=== PATIENT | female | born 1990 | race Caucasian/White ===

== ENCOUNTER 2019-06-14 11:12 | Emergency (ER) | payer OTHER ==
--- NOTE | 2019-06-14 11:53 | EDM.PDOC ---
ED HPI GENERAL MEDICAL PROBLEM - General Chief Complaint: Fever Stated Complaint: SOB/FEVER Time Seen by Provider: 06/14/19 11:21 Source of Information: Reports: Patient, RN Notes Reviewed History Limitations: Reports: No Limitations - History of Present Illness INITIAL COMMENTS - FREE TEXT/NARRATIVE: Patient is a 29-year-old female who presents to the ED for evaluation of a fever , sore throat, dry cough, and chest heaviness. Patient notes that she felt off yesterday, and had a seizure. She states she does have a history of seizure activity, and states that she usually gets these, but has been told they are stress-induced. Patient does not think she has been in abundant amount of stress. Nonetheless she states that she woke up this morning and her fever was 102 F. She did take some Tylenol for this. Patient complains of the feeling of an elephant sitting on her chest, she has had a dry cough, sore throat. Patient temperature at time of triage is 99.1 F. O2 sats are 97% on room air. Patient is not tachycardic, heart rate is 71 bpm, she is not dyspneic respiratory rate is 16. Patient does not appear to be in any sort of respiratory distress. Patient states she has been staying home, but denies any known exposure to COVID-19, or other sick individuals. Patient states that she has not left home except to go to the grocery store, and states that she could have had community exposure. She denies any cardiac history or lung history. Patient states that she was a cigarette smoker, but quit 4 days ago, she states that she recreationally uses marijuana from time to time. - Related Data Allergies Allergy/AdvReac Type Severity Reaction Status Date / Time NSAIDS (Non-Steroidal Allergy Stomach Verified 06/14/19 11:23 Anti-Inflamma Upset Home Meds: Home Meds . [No Known Home Meds] 01/15/19 [History] Past Medical History Neurological History: Reports: Seizure - Past Surgical History HEENT Surgical History: Reports: Myringotomy w Tube(s) (as a child) Female Surgical History: Reports: Section (x3) Social & Family History - Tobacco Use Smoking Status *Q: Former Smoker Years of Tobacco use: 11 Packs/Tins Daily: 1 Used Tobacco, but Quit: Yes Month/Year Tobacco Last Used: states that she quit 06/10/2019 Smoking Cessation Information Provided To Patient: Patient Refused - Recreational Drug Use Recreational Drug Use: Yes Recreational Drug Type: Reports: Marijuana/Hashish Recreational Drug Use Frequency: Rarely ED ROS GENERAL - Review of Systems Review Of Systems: Comprehensive ROS is negative, except as noted in HPI. ED EXAM, GENERAL - Physical Exam Exam: See Below Exam Limited By: No Limitations General Appearance: Alert, WD/WN, No Apparent Distress Eye Exam: Bilateral Eye: EOMI, Normal Inspection, PERRL Ears: Normal External Exam, Normal Canal, Hearing Grossly Normal, Normal TMs Nose: Normal Inspection, Normal Mucosa, No Blood Throat/Mouth: Normal Inspection, Normal Lips, Normal Teeth, Normal Gums, Normal Oropharynx, Normal Voice, No Airway Compromise Head: Atraumatic, Normocephalic Neck: Normal Inspection, Supple, Non-Tender, Full Range of Motion Respiratory/Chest: No Respiratory Distress, Lungs Clear, Normal Breath Sounds, No Accessory Muscle Use, Chest Non-Tender Cardiovascular: Normal Peripheral Pulses, Regular Rate, Rhythm, No Murmur Peripheral Pulses: 3+: Radial (L), Radial (R) GI/Abdominal: Normal Bowel Sounds, Soft, Non-Tender, No Distention, No Mass Extremities: Normal Inspection, Normal Capillary Refill Neurological: Alert, Oriented, Normal Cognition, No Motor/Sensory Deficits Psychiatric: Normal Affect, Normal Mood Skin Exam: Warm, Dry, Intact, Normal Color, No Rash Course - Vital Signs Last Recorded V/S: Last Vital Signs Temp 99.1 F 06/14/19 11:21 Pulse 71 06/14/19 11:21 Resp 16 06/14/19 11:21 BP 124/88 06/14/19 11:21 Pulse Ox 97 06/14/19 11:21 - Orders/Labs/Meds Orders: Active Orders 24 hr Category Date Time Status Isolation [COMM] Routine Oth 06/14/19 11:42 Ordered Labs: Laboratory Tests 06/14/19 06/14/19 06/14/19 Range/Units 12:30 12:30 12:30 WBC 6.71 (3.98-10.04) K/mm3 RBC 4.87 (3.98-5.22) M/mm3 Hgb 14.4 (11.2-15.7) gm/dl Hct 42.8 (34.1-44.9) % MCV 87.9 (79.4-94.8) fl MCH 29.6 (25.6-32.2) pg MCHC 33.6 (32.2-35.5) g/dl RDW Std Deviation 41.1 (36.4-46.3) fL Plt Count 284 (182-369) K/mm3 MPV 11.2 (9.4-12.3) fl Neutrophils % (Manual) 59 (40-60) % Band Neutrophils % 0 (0-10) % Lymphocytes % (Manual) 33 (20-40) % Atypical Lymphs % 0 % Monocytes % (Manual) 6 (2-10) % Eosinophils % (Manual) 2 (0.7-5.8) % Basophils % (Manual) 0 L (0.1-1.2) Platelet Estimate Adequate RBC Morph Comment Normal PT 11.1 (9.7-12.0) SECONDS INR 1.02 APTT 31 (22-31) SECONDS Sodium (136-145) mEq/L Potassium (3.5-5.1) mEq/L Chloride (98-107) mEq/L Carbon Dioxide (21-32) mEq/L Anion Gap (5-15) BUN (7-18) mg/dL Creatinine (0.55-1.02) mg/dL Est Cr Clr Drug Dosing mL/min Estimated GFR (MDRD) (>60) mL/min BUN/Creatinine Ratio (14-18) Glucose (74-106) mg/dL Calcium (8.5-10.1) mg/dL Magnesium (1.8-2.4) mg/dl Ferritin (8-252) ng/ml Total Bilirubin (0.2-1.0) mg/dL AST (15-37) U/L ALT (14-59) U/L Alkaline Phosphatase (46-116) U/L Lactate Dehydrogenase (81-234) U/L Creatine Kinase (26-192) U/L C-Reactive Protein 0.5 (<1.0) mg/dL NT-Pro-B Natriuret Pep (0-125) pg/mL Total Protein (6.4-8.2) g/dl Albumin (3.4-5.0) g/dl Globulin gm/dL Albumin/Globulin Ratio (1-2) 06/14/19 06/14/19 06/14/19 Range/Units 12:30 12:30 12:30 WBC (3.98-10.04) K/mm3 RBC (3.98-5.22) M/mm3 Hgb (11.2-15.7) gm/dl Hct (34.1-44.9) % MCV (79.4-94.8) fl MCH (25.6-32.2) pg MCHC (32.2-35.5) g/dl RDW Std Deviation (36.4-46.3) fL Plt Count (182-369) K/mm3 MPV (9.4-12.3) fl Neutrophils % (Manual) (40-60) % Band Neutrophils % (0-10) % Lymphocytes % (Manual) (20-40) % Atypical Lymphs % % Monocytes % (Manual) (2-10) % Eosinophils % (Manual) (0.7-5.8) % Basophils % (Manual) (0.1-1.2) Platelet Estimate RBC Morph Comment PT (9.7-12.0) SECONDS INR APTT (22-31) SECONDS Sodium 141 (136-145) mEq/L Potassium 3.9 (3.5-5.1) mEq/L Chloride 107 (98-107) mEq/L Carbon Dioxide 25 (21-32) mEq/L Anion Gap 12.9 (5-15) BUN 9 (7-18) mg/dL Creatinine 0.8 (0.55-1.02) mg/dL Est Cr Clr Drug Dosing 87.38 mL/min Estimated GFR (MDRD) > 60 (>60) mL/min BUN/Creatinine Ratio 11.3 L (14-18) Glucose 98 (74-106) mg/dL Calcium 9.1 (8.5-10.1) mg/dL Magnesium 1.8 (1.8-2.4) mg/dl Ferritin 83 (8-252) ng/ml Total Bilirubin 0.4 (0.2-1.0) mg/dL AST 10 L (15-37) U/L ALT 18 (14-59) U/L Alkaline Phosphatase 110 (46-116) U/L Lactate Dehydrogenase 123 (81-234) U/L Creatine Kinase 52 (26-192) U/L C-Reactive Protein (<1.0) mg/dL NT-Pro-B Natriuret Pep 30 (0-125) pg/mL Total Protein 7.4 (6.4-8.2) g/dl Albumin 3.7 (3.4-5.0) g/dl Globulin 3.7 gm/dL Albumin/Globulin Ratio 1.0 (1-2) - Re-Assessments/Exams Free Text/Narrative Re-Assessment/Exam: 06/14/19 11:51 Patient presents to the ED for her respiratory symptoms. She will be screened for COVID-19, and get some other labs and chest x-ray for evaluation today. 06/14/19 13:23 The patient's labs have come back, and demonstrate fairly normal values. There is nothing that is emergently worrisome at today's visit. Influenza screen was negative. Patient's throat exam did not demonstrate any signs of a strep infection 1 was not collected at today's visit. COVID swab will be collected at time of discharge, patient was made aware of results. Departure - Departure Time of Disposition: 13:25 Disposition: Home, Self-Care 01 Condition: Good Clinical Impression: Cough with fever Dyspnea Qualifiers: Dyspnea type: unspecified Qualified Code(s): R06.00 - Dyspnea, unspecified - Discharge Information *PRESCRIPTION DRUG MONITORING PROGRAM REVIEWED*: No *COPY OF PRESCRIPTION DRUG MONITORING REPORT IN PATIENT HERNANDEZ: No Instructions: Shortness of Breath, Adult, [id number], Fever, Adult, Easy-to- Read Referrals: PCP,None [Primary Care Provider] - Forms: ED Department Discharge Additional Instructions: You were seen in the ER today for ongoing and/or worsening respiratory symptoms. Your chest x-ray showed no signs of pneumonia at this time. Your oxygen levels were great at 97-98% on room air. At this time we did test you for coronavirus. Regarding testing for COVID-19, testing supplies are very limited, and the tests must be rationed in a way that only the patients that are HIGHLY suspected to have the virus are the ones being tested at this time. Swabs are sent from this facility on a daily basis, at 2:30 PM, you should expect up to 3-5 business days for positive or negative results. However you may receive results earlier than this. We are doing our best to call as soon as we get results from the [place] dept. of Health. It is recommended at this time that you go home and self quarantine and try to limit exposure to other as much as possible. Please try to increase your oral fluid intake, and eat multiple small meals throughout the day, to keep yourself healthy. You may take 500 mg Tylenol every hours 6 hours for pain/fever relief. Do not exceed 4000 mg Tylenol in a 24-hour time span. However, running a fever is your body's natural response to illness, and it allows the body to develop antibodies to disease, we are recommending trying to limit the use of Tylenol as much as possible to allow your body's natural immune response. Recommend that you obtain a simple pulse oximeter, available at most retailers like [employer] or other pharmacies, and monitor your O2 sats. In order to do as such, you will need to put the probe on your finger, and then sit in a restful position, without moving your hand to make sure that it is reading properly. Sepsis Event Note - Evaluation Sepsis Screening Result: No Definite Risk - Focused Exam Vital Signs: Vital Signs Temp Pulse Resp BP Pulse Ox 06/14/19 11:21 99.1 F 71 16 124/88 97 Date Exam was Performed: 06/14/19 Time Exam was Performed: 13:23 - My Orders Last 24 Hours: My Active Orders 06/14/19 11:42 Isolation [COMM] Routine - Assessment/Plan Last 24 Hours: My Active Orders 06/14/19 11:42 Isolation [COMM] Routine
--- NOTE | 2019-06-14 12:16 | CR ---
Chest: Portable view of the chest was obtained. Comparison: No prior chest x-ray. Heart size and mediastinum are normal. Lungs are clear with no acute parenchymal change. Bony structures are grossly intact. Impression: 1. Nothing acute is identified on 2 view chest x-ray. Diagnostic code #1 Study was dictated in MDT
== END 2019-06-14 13:45 | disposition home or self-care (01) ==
LOC: JD.ED 11:12
DX: R06.00 Dyspnea, unspecified (principal); R05 Cough; R50.9 Fever, unspecified; Z88.8 Allergy status to other drugs, medicaments and biological substances; Z87.891 Personal history of nicotine dependence
CPT/HCPCS: 36415; 71045; 71045-26; 80053; 82550; 82728; 83615; 83735; 83880; 85007; 85027; 85610; 85730; 86140; 87804; 99283; 99283-25; U0002

== ENCOUNTER 2019-12-21 17:00 | Emergency (ER) | payer MEDICARE, OTHER ==
[2019-12-21] MEDS ORDERED: Sodium Chloride 0.9% 10 ML Syringe FLUSH PRN (17:06)
[2019-12-21] MEDS ORDERED: LORazepam 2 MG/ML SDV IVPUSH ONE (17:22)
--- NOTE | 2019-12-21 18:23 | EDM.PDOC ---
ED HPI GENERAL MEDICAL PROBLEM - General Chief Complaint: Neurological Problem Stated Complaint: [facility] Time Seen by Provider: 12/21/19 17:06 Source of Information: Reports: Patient, EMS History Limitations: Reports: No Limitations - History of Present Illness INITIAL COMMENTS - FREE TEXT/NARRATIVE: The patient presents by [facility] for a seizure. The patient was at home and a neighbor heard a thump and humphrey to investigate and found the patient on the floor seizing. She had a generalized tonic clonic seizure that lasted a few seconds. She had another one when EMS arrived. She was post ictal for awhile. She feels better and she is alert and orientated. She has a history of seizures and had one a year ago. She is not on any seizure medications because the seizures are few and far between. She says when they do happen she is usually stressed. She is in the process of moving but does not feel stressed. She does have a slight headache. She has no neck pain. She has right shoulder pain. She thinks she hit it when she fell. She has no numbness or weakness. She has no fever, chills, cough, congestion, runny nose, chest pain or shortness of breath. Onset: Sudden Duration: Minutes: Location: Reports: Head, Upper Extremity, Right (shoulder) Quality: Reports: Sharp Severity: Moderate Improves with: Reports: Immobilization Worsens with: Reports: Movement Context: Reports: Trauma (Fall with a seizure) Associated Symptoms: Reports: No Other Symptoms Right Shoulder Pain Score (Numeric/FACES): 6 body Pain Score (Numeric/FACES): 4 - Related Data Allergies Allergy/AdvReac Type Severity Reaction Status Date / Time lamotrigine [From Lamictal] Allergy Severe Hives Verified 12/21/19 17:19 latex Allergy Severe Hives Verified 12/21/19 17:19 NSAIDS (Non-Steroidal Allergy Stomach Verified 06/14/19 11:23 Anti-Inflamma Upset Home Meds: Home Meds levETIRAcetam [Keppra] 500 mg PO BID #60 tab 12/21/19 [Rx] Past Medical History - Past Health History Medical/Surgical History: Denies Medical/Surgical History Neurological History: Reports: Seizure - Past Surgical History HEENT Surgical History: Reports: Myringotomy w Tube(s) Female Surgical History: Reports: Section Social & Family History - Tobacco Use Tobacco Use Status *Q: Current Every Day Tobacco User Years of Tobacco use: 11 Packs/Tins Daily: 0.5 - Caffeine Use Caffeine Use: Reports: None - Recreational Drug Use Recreational Drug Use: No ED ROS GENERAL - Review of Systems Review Of Systems: See Below Constitutional: Reports: No Symptoms HEENT: Reports: No Symptoms Respiratory: Reports: No Symptoms Cardiovascular: Reports: No Symptoms Endocrine: Reports: No Symptoms GI/Abdominal: Reports: No Symptoms : Reports: No Symptoms Musculoskeletal: Reports: Shoulder Pain (right) Skin: Reports: No Symptoms - Physical Exam Exam: See Below Exam Limited By: No Limitations General Appearance: Alert, No Apparent Distress Ears: Normal External Exam Nose: Normal Inspection Head Exam: Atraumatic, Normocephalic Neck: Normal Inspection Respiratory/Chest: No Respiratory Distress, Lungs Clear, Normal Breath Sounds Cardiovascular: Regular Rate, Rhythm, No Edema, No Murmur GI/Abdominal: Soft, Non-Tender, No Organomegaly, No Mass Neuro Exam (Abbreviated): Alert, Oriented, No Motor/Sensory Deficits Extremities: Other (Pain upon palpation to the anterior right shoulder with good sensation and pulses distally.) Course - Vital Signs Last Recorded V/S: Last Vital Signs Temp 98.9 F 12/21/19 17:07 Pulse 67 12/21/19 17:07 Resp 16 12/21/19 17:07 BP 130/82 12/21/19 17:07 Pulse Ox 97 12/21/19 17:07 - Orders/Labs/Meds Orders: Active Orders 24 hr Category Date Time Status Cardiac Monitoring [RC] . DIRECTED Care 12/21/19 17:06 Active Peripheral IV Care [RC] . DIRECTED Care 12/21/19 17:07 Active Head wo Cont [CT] Stat Exams 12/21/19 17:07 Taken Shoulder Comp Rt [CR] Stat Exams 12/21/19 18:16 Taken Sodium Chloride 0.9% [Saline Flush] Med 12/21/19 17:06 Active 10 ml FLUSH ASDIRECTED PRN levETIRAcetam [Keppra] Med 12/21/19 19:00 Once 1,000 mg PO ONETIME ONE Peripheral IV Insertion Adult [OM.PC] Stat Oth 12/21/19 17:06 Ordered Medication Orders Sodium Chloride (Saline Flush) 10 ml FLUSH ASDIRECTED PRN PRN Reason: Keep Vein Open Last Admin: 12/21/19 17:35 Dose: 10 ml Documented by: [email or web address] Labs: Laboratory Tests 12/21/19 12/21/19 12/21/19 Range/Units 17:26 17:26 17:26 WBC 9.19 (3.98-10.04) K/mm3 RBC 4.71 (3.98-5.22) M/mm3 Hgb 13.8 (11.2-15.7) gm/dl Hct 41.6 (34.1-44.9) % MCV 88.3 (79.4-94.8) fl MCH 29.3 (25.6-32.2) pg MCHC 33.2 (32.2-35.5) g/dl RDW Std Deviation 43.3 (36.4-46.3) fL Plt Count 294 (182-369) K/mm3 MPV 10.9 (9.4-12.3) fl Neut % (Auto) 69.1 (34.0-71.1) % Lymph % (Auto) 22.5 (19.3-51.7) % Pratt % (Auto) 7.0 (4.7-12.5) % Eos % (Auto) 0.9 (0.7-5.8) Baso % (Auto) 0.4 (0.1-1.2) % Neut # (Auto) 6.35 H (1.56-6.13) K/mm3 Lymph # (Auto) 2.07 (1.18-3.74) K/mm3 Pratt # (Auto) 0.64 H (0.24-0.36) K/mm3 Eos # (Auto) 0.08 (0.04-0.36) K/mm3 Baso # (Auto) 0.04 (0.01-0.08) K/mm3 Sodium 139 (136-145) mEq/L Potassium 3.8 (3.5-5.1) mEq/L Chloride 104 (98-107) mEq/L Carbon Dioxide 20 L (21-32) mEq/L Anion Gap 18.8 H (5-15) BUN 9 (7-18) mg/dL Creatinine 0.7 (0.55-1.02) mg/dL Est Cr Clr Drug Dosing 99.86 mL/min Estimated GFR (MDRD) > 60 (>60) mL/min BUN/Creatinine Ratio 12.9 L (14-18) Glucose 93 (74-106) mg/dL Calcium 8.9 (8.5-10.1) mg/dL Magnesium 1.8 (1.8-2.4) mg/dl Total Bilirubin 0.5 (0.2-1.0) mg/dL AST 11 L (15-37) U/L ALT 23 (14-59) U/L Alkaline Phosphatase 96 (46-116) U/L Total Protein 7.4 (6.4-8.2) g/dl Albumin 3.9 (3.4-5.0) g/dl Globulin 3.5 gm/dL Albumin/Globulin Ratio 1.1 (1-2) HCG, Qual Negative (NEGATIVE) Meds: Medications Generic Name Dose Route Start Last Admin Trade Name Freq PRN Reason Stop Dose Admin Sodium Chloride 10 ml 12/21/19 17:06 12/21/19 17:35 Saline Flush FLUSH 10 ml ASDIRECTED PRN Administration Keep Vein Open Discontinued Medications Generic Name Dose Route Start Last Admin Trade Name Freq PRN Reason Stop Dose Admin Lorazepam 1 mg 12/21/19 17:22 12/21/19 17:35 Ativan IVPUSH 12/21/19 17:23 1 mg ONETIME ONE Administration - Re-Assessments/Exams Free Text/Narrative Re-Assessment/Exam: 12/21/19 18:28 I ordered an IV saline lock, ativan 1mg IV, labs, CT of her head and an x-ray of her right shoulder. 12/21/19 18:29 Her CBC and CMP look good. Her HCG is negative. I waiting for the CT and x- ray. 12/21/19 19:[address] of her head and shoulder x-ray look good. I will load her with keppra 1,000mg and I will give her a prescription for more. Departure - Departure Time of Disposition: 19:05 Disposition: Home, Self-Care 01 Condition: Good Clinical Impression: Seizure - Discharge Information *PRESCRIPTION DRUG MONITORING PROGRAM REVIEWED*: Not Applicable *COPY OF PRESCRIPTION DRUG MONITORING REPORT IN PATIENT HERNANDEZ: Not Applicable Prescriptions: levETIRAcetam [Keppra] 500 mg PO BID #60 tab Referrals: PCP,None [Primary Care Provider] - Forms: ED Department Discharge Additional Instructions: Take the keppra 2 times per day. Follow up with a doctor or neurologist where you move to. Please return if you are worse. Sepsis Event Note (ED) - Evaluation Sepsis Screening Result: No Definite Risk - Focused Exam Vital Signs: Vital Signs Temp Pulse Resp BP Pulse Ox 12/21/19 17:07 98.9 F 67 16 130/82 97 - My Orders Last 24 Hours: My Active Orders 12/21/19 17:06 Cardiac Monitoring [RC] . DIRECTED Sodium Chloride 0.9% [Saline Flush] 10 ml FLUSH ASDIRECTED PRN Peripheral IV Insertion Adult [OM.PC] Stat 12/21/19 17:07 Peripheral IV Care [RC] . DIRECTED Head wo Cont [CT] Stat 12/21/19 18:16 Shoulder Comp Rt [CR] Stat 12/21/19 19:00 levETIRAcetam [Keppra] 1,000 mg PO ONETIME ONE - Assessment/Plan Last 24 Hours: My Active Orders 12/21/19 17:06 Cardiac Monitoring [RC] . DIRECTED Sodium Chloride 0.9% [Saline Flush] 10 ml FLUSH ASDIRECTED PRN Peripheral IV Insertion Adult [OM.PC] Stat 12/21/19 17:07 Peripheral IV Care [RC] . DIRECTED Head wo Cont [CT] Stat 12/21/19 18:16 Shoulder Comp Rt [CR] Stat 12/21/19 19:00 levETIRAcetam [Keppra] 1,000 mg PO ONETIME ONE
[2019-12-21] MEDS ORDERED: levETIRAcetam 500 MG Tab PO ONE (19:00)
== END 2019-12-21 19:18 | disposition home or self-care (01) ==
LOC: JD.ED 17:00
DX: R56.9 Unspecified convulsions (principal); R51.9 Headache, unspecified; F17.210 Nicotine dependence, cigarettes, uncomplicated; Z88.8 Allergy status to other drugs, medicaments and biological substances; Z91.040 Latex allergy status; Z79.899 Other long term (current) drug therapy
CPT/HCPCS: 36415; 70450; 73030; 80053; 83735; 84703; 85025; 96374; 99285; A9270; J2060; 99284